=== PATIENT | female | born 1955 | race Caucasian/White ===

== ENCOUNTER 2024-05-16 20:49 | Emergency (ER) | payer MEDICARE, SELFPAY ==
[2024-05-16 20:51] VITALS: BP 180/90
[2024-05-16 21:08] VITALS: BMI 25.3
[2024-05-16 21:57] VITALS: BP 127/64
[2024-05-16 22:00] VITALS: BP 115/61
--- NOTE | 2024-05-16 22:44 | ED.GENMED ---
History of Present Illness
General
Chief Complaint: Head Injury
Source: patient
Exam Limitations: none
Time Seen by Provider: 05/16/24 22:01
Nursing documentation reviewed up to this point in time: agreed with
History of Present Illness
History of Present Illness:
68-year-old female with history of A-fib on Eliquis, CHF who presents to the emergency room for evaluation after head trauma. Patient says that she tripped on the leg of a chair while she was getting up and fell backwards and hit the back of her
head on the ground. She did not lose consciousness. She says she did not sustain any other injuries. She says that because she is on Eliquis she came to the emergency to be assessed. She says she did notice that she has tiny subconjunctival
hemorrhage in the left eye but denies any other issues since the fall. Denies any headache or neck pain. Denies any back pain. Denies any chest or abdominal pain. Denies any pain in her extremities. Has been ambulatory since the fall without
difficulty.
Review of Systems
Review of Systems
All Other Systems: ROS reviewed and negative except as documented in HPI and ROS
Constitutional: Denies fever or chills
Respiratory: Denies cough or trouble breathing
Cardiac: Denies chest pain, palpitations or syncope
ABD/GI: Denies abdominal pain, nausea or vomiting
: Denies flank pain
Musculoskeletal: Denies neck pain or back pain
Neurological: Denies dizzy or headache
Phy Exam
Physical Exam
Physical Exam:
General: Awake, alert, oriented x3; no acute distress
Head: Normocephalic, tiny left occipital scalp hematoma
Eyes: Tiny subconjunctival hemorrhage left eye; pupils equal round reactive to light bilaterally, extraocular moods are intact
Throat: Airway intact, handling secretions
Neck: Trachea midline, no cervical spine tenderness
Back: No tenderness in the thoracic or lumbar spine, no signs of trauma to the back or flank
Lungs: Breathing comfortably no distress, normal respiratory rate and work of breathing, normal pulse ox on room air
Heart: Regular rate; no chest wall tenderness
Abd: Soft, non distended, nontender
Neuro: No gross deficits
Extremities: Atraumatic
Scores
Heart Failure Risk
Heart Failure Risk Score: Not Applicable
Heart Score for Chest Pain Patients
STEMI patient?: Not applicable
Withdrawal Assessment of Alcohol
Withdrawal Assessment Completed?: Not applicable
Course
Orders/Labs/Results
Orders:
Orders
05/16/24 20:[address] [CT Head W/o Iv Contrast] Urgent
Comment:
Reason For Exam: FALL ON ELIQUIS, RIGHT EYE BLURRY, LEFT CONJUNCTIV
Vital Signs
Initial and Last Documented VS:
Initial Vital Signs
Temp Pulse Resp BP Pulse Ox
36.9 C 80 22 180/90 100
05/16/24 20:51 05/16/24 20:51 05/16/24 20:51 05/16/24 20:51 05/16/24 20:51
Last Documented Vital Signs
Temp Pulse Resp BP Pulse Ox
36.9 C 80 22 115/61 100
05/16/24 20:51 05/16/24 20:51 05/16/24 20:51 05/16/24 22:00 05/16/24 22:00
MDM/Problems Addressed
Differential Diagnosis Includes:
Traumatic head injury
MDM/Problems Addressed:
68-year-old female presents for evaluation after a mechanical trip and fall with occipital head trauma. She is on Eliquis. Minor subconjunctival hemorrhage in the left eye no other complaints. Hypertensive in triage normalized by my assessment,
rest of vitals normal. Physical exam as above. Check CT head. Reassess at the above.
CT head negative for any acute pathology. Stable for discharge. Spoke about return precautions all questions answered.
Chronic conditions affecting care:
A-fib on Eliquis�complicates head trauma
Acute Exacerbation and/or Progression of Chronic Illness:
Acutely hypertensive resolved without intervention continue to monitor but no additional antihypertensive treatment indicated at present
Acute Exacerbation and/or Progression of Chronic Illness: HTN
*Radiology
Radiology exam reviewed: radiology read reviewed
*Pulse Oximetry
Patient hypoxic: no
*Critical Care Note
Total Time (30-74mins, 75-104mins- exclusive of procedures): Not Applicable
Data Reviewed
Source: patient and spouse
ED Attending Note
-
Portions of this chart may have been created with voice recognition software.� Occasional wrong word or��sound alike� substitutions may have occurred due to the inherent limitations of voice recognition software.
Discharge Plan
Departure
Patient Disposition: Home (Routine Discharge)
Date of Disposition: 05/16/24
Time of Disposition: 22:05
Patient with high blood pressure during this ER visit?: Yes
Discharge Problem:
Traumatic hematoma of scalp
Instructions: Head Injury in Adults (DC)
Prescriptions:
No Action
amiodarone 200 mg Tablet
200 mg PO DAILY
acetaminophen [Tylenol Ex Str Arthritis Pain] 500 mg Tablet
1,000 mg PO Q6H PRN (Reason: pain)
metoprolol succinate 25 mg Tablet Extended Release 24 Hr
25 mg PO DAILY
Eliquis 5 mg Tablet
5 mg PO BID
Entresto 24-26 mg Tablet
1 tab PO BID
Activity Restrictions/Additional Instructions:
Thank you for visiting the Emergency Department at [facility].
1. Please schedule a follow up appointment as directed. Call first thing tomorrow morning to make an appointment.
2. If indicated, please take your medications as instructed and indicated on discharge paperwork.
3. If any of your symptoms do not improve, or persist, or become more severe within 6-12 hours, please return to the emergency department for further care.
4. Please return to the emergency department if you develop a headache, neck pain/stiffness, fever greater than 100.4F, chest pain, shortness of breath, persistent nausea, vomiting, slurred speech, difficulty walking, numbness/tingling, weakness,
signs of infection or any other symptoms that are worrisome to you.
Please call [phone] if you have any questions.
Interventions
Interventions:
*Risk Screen - Suicide Last Done: 05/16/24 20:51
*General Assessment Last Done: 05/16/24 21:11
*Neglect/Abuse Screening Last Done: 05/16/24 20:51
ED- Fall Risk Assessment Last Done: 05/16/24 22:12
*Nursing Disposition Last Done: 05/16/24 22:12
ED- Neurological Assessment Last Done: 05/16/24 21:08
ED-Skin Assessment Last Done: 05/16/24 21:08
Discharge Date and Time
Discharge Date/Time: 05/16/24 22:25
Print Language: CZECH
== END 2024-05-16 22:25 | disposition home or self-care (01) ==
LOC: EMR 20:49
PROVIDERS: EMERGENCY PHYSICIAN Emergency Medicine; FAMILY PHYSICIAN Family Medicine
DX: S00.03XA Contusion of scalp, initial encounter (principal); H11.32 Conjunctival hemorrhage, left eye; W07.XXXA Fall from chair, initial encounter; I48.91 Unspecified atrial fibrillation; I11.0 Hypertensive heart disease with heart failure; I50.9 Heart failure, unspecified; Z79.01 Long term (current) use of anticoagulants
CPT/HCPCS: 99284; 70450

== ENCOUNTER 2024-07-23 07:47 | Day surgery (SDC) | payer MEDICARE, SELFPAY ==
[2024-07-07 12:58] VITALS: BMI 26.4
[2024-07-07 13:29] LABS: % Eosinophils 0.7 % (0-6); % Lymphocytes 24.4 % (20.5-51.1); % Monocytes 10.2 % (1.7-9.3); % Neutrophils 63.5 % (42.2-75.2); Hematocrit 39.4 % (37.0-47.0); Hemoglobin 13.3 g/dL (12.0-16.0); Mean Corp Hgb Conc. 33.8 g/dL (33.0-37.0); Mean Corpuscular Hgb 31.4 pg (27.0-31.0); Mean Corpuscular Volume 93.1 fL (81.0-99.0); Mean Platelet Volume 9.2 fL (7.4-10.4); Platelet Count 203 10^3/uL (130-400); Red Blood Cell Count 4.23 10^6/uL (4.20-5.40); Red Cell Dist. Width 12.4 % (11.5-14.5); White Blood Cell Count 5.8 10^3/uL (4.8-10.8)
[2024-07-07 13:30] LABS: % Basophils 0.9 % (0-2); % Immature Granulocytes 0.3 % (0-0.5); Absolute Basophils 0.1 10^3/uL (0-0.2); Absolute Lymphocytes 1.4 10^3/uL (1.2-3.4); Absolute Monocytes 0.6 10^3/uL (0.1-0.6); Absolute Neutrophils 3.7 10^3/uL (1.4-6.5); Nucleated Red Blood Cells % 0 %
[2024-07-07 13:42] LABS: INR 1.18; PT 14.8 Sec (11.4-14.6)
[2024-07-07 13:47] LABS: ALT (SGPT) 18 U/L (0-35); AST (SGOT) 27 U/L (14-36); Albumin 4.5 g/dl (3.5-5.0); Alkaline Phosphatase 71 U/L (38-126); Blood Urea Nitrogen 13 mg/dl (7-17); Calcium 9.3 mg/dl (8.4-10.2); Carbon Dioxide 29 mmol/L (22-30); Chloride 101 mmol/L (98-107); Estimated Creatinine Clearance 58 ml/min; Glucose 94 mg/dl (70-99); Magnesium 2.1 mg/dl (1.6-2.3); Potassium 4.2 mmol/L (3.5-5.1); Sodium 139 mmol/L (135-145); Total Bilirubin 0.4 mg/dl (0.2-1.3); eGFR > 60.00
[2024-07-23] VITALS (21 sets, daily range): BP systolic 81–165; BP diastolic 45–83; BMI 24.7
[2024-07-23 11:30] LABS: ACT-LR - POC 285 Seconds (116-155)
[2024-07-23 11:50] LABS: ACT-LR - POC 303 Seconds (116-155)
--- NOTE | 2024-07-23 12:07 | ITS.CL.ABL ---
[employer] - Ablation
Ablation
Procedure Report:
ELECTROPHYSIOLOGY ABLATION STUDY
�
DATE:: July 23, 2024�����������������������������REFERRING: Dr. Celio Sellers
�
INDICATION: Paroxysmal supraventricular tachycardia in the form of atrial fibrillation.� History of nonischemic dilated cardiomyopathy
�
HISTORY: See H and P.��As above
�
ANTIARRHYTHMIC DRUG: Amiodarone
�
PRE-PROCEDURE ROSEY: No intracardiac thrombus
�
PRESENTING RHYTHM: Sinus bradycardia
�
'TIME-OUT':��called and confirmed.
�
SEDATION/ANESTHESIA:��provided via the anesthesia department using general anesthesia (LMA).
�
INTRAVENOUS/ARTERIAL ACCESS:
Right femoral venous - 8Fr
Left femoral venous - 8 Fr, 6 Fr
Vascade vascular closure was utilized for each of the venous access sites
Ultrasound guidance for bilateral femoral vein access was utilized by me to obtain access with demonstration of normal anatomy
CHADS-VASC Score:
�
HAS-Bled Score
�
PROCEDURE:
1.��A decapolar CS catheter was placed within the CS for mapping and pacing.��This was also used as the reference catheter for the 3-D map.
�
2. The intracardiac ultrasound catheter was positioned in the RA to identify the FO for targeting of transseptal puncture, assist��in identification of the pulmonary vein ostia, monitoring pre and post ablation pulmonary vein flow velocities,
monitoring for 'bubble' formation during RF application as a sign of thermal injury,��and to monitor for pericardial effusion during mapping and ablation procedure.���Left atrial size, LV ejection fraction, and pulmonary vein flows were monitored
pre and post ablation procedure. The other valves were inspected and found to be free of significant regurgitation or stenosis.
�
3.��Half of the calculated heparin bolus was administered prior to the first transeptal puncture.��Transseptal puncture was performed to diagnose RA and LA pressure so that safety of LA mapping and ablation could be further assessed, and to access
the left atrium and pulmonary veins for mapping and ablation.��This entailed advancing an 14 [place] Contour and needle dilator apparatus were advanced into the superior vena cava and withdrawing both (monitoring intracardiac ultrasound, fluoroscopy
and tip pressure) with the tip oriented toward the atrial septum.��The fossa ovalis was engaged (indicated by sudden displacement of the sheath tip as well as tenting of the fossa seen on intracardiac ultrasound).��Left atrial access required a pass
with the Brock[place]rough needle extended.��Left atrial catheter position was confirmed by pressure monitoring (RA mean pressure 8 mm Hg and LA mean presure 12 mm Hg), LA saturation (99%),��as well as fluoroscopy.��The sheath was advanced over the
dilator and positioned in the left atrium.��This procedure was repeated for the Agilis sheath.��The remainder of the calculated heparin bolus was administered and heparin was
infused to maintain ACT at 300 -350 seconds throughout the case. 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
�
4.��RA pacing was performed via the proximal decapolar poles and LA pacing was performed via the distal decapolr poles.
�
5. A quadrapolar catheter was first positioned at the His position for His Bundle recording which was tagged via the 3-D Navex sytem, and then passed to the RVA for RV pacing and recording.
�
6. The multipolar catheter and the PFA catheter were placed in each of the LIPV, LSPV, RSPV and the RIPV.��
�
7.��Next, a 3-D map was created using Navex.���A 3-D reconstructed CT image was compared to the 3-D Navex map to assist in anatomic interpretation, mapping and ablation.��The CT image and the NavX image were fused.
�
8. 88 lesions were given to the pulmonary veins and the left atrial posterior wall. Entrance and exit block in all 4 pulmonary veins and left atrial posterior wall was achieved. No pericardial fusion. Post procedure. Normal sinus node function.
0.2 mg of glycopyrrolate was given prior to ablation to void pause.
�
9. Normal sinus node and AV jennifer function were noted.
�
TOTAL FLOURO TIME: 17.8 minutes 83 mGy
�
TOTAL RF DURATION: 0 minutes
�
REVERSAL OF HEPARIN: 35 mg of protamine, slow IV administration
�
COMPLICATIONS:
None
Intracardiac US shows no pericardial effusion post ablation.
�
SUMMARY:��
Complex left atrial mapping and ablation.
Isolation of all 4 pulmonary veins and the left atrial posterior wall as above.
�
RECOMMENDATIONS:
1. Out of bed in 2 hours
2. Resume anticoagulation
3.��Discontinue amiodarone
4.��Consider same-day discharge
�
Copy to: Dr. Celio Sellers
�
--- NOTE | 2024-07-23 13:23 | PTCARENOTE ---
Dr Bella at pt bedside speaking to pt.
--- NOTE | 2024-07-23 14:55 | W.PN.UPDATE ---
Update Note
Progress Note Update
68 yo WF s/p PVI (same day). She denies cp, sob, jeferson clears, mildly lightheaded and hypotensive when oob initially, b/l groins c/d/i, soft, EKG SR. She will continue Eliquis dose at home tonight. She will continue metoprolol. Activity restrictions
reviewed. SHe will f/u Dr. Sellers in 2 mo. She is for d/c home after 3pm if voiding and bp improved.
SUMMARY:��
Complex left atrial mapping and ablation.
Isolation of all 4 pulmonary veins and the left atrial posterior wall as above.
--- NOTE | 2024-07-23 15:12 | PTCARENOTE ---
Pt's blood pressure has been 80's-90's/50's for the last 2 hours. Pt has been sitting in a chair at bedside for the last hour. Pt states when she first sat in chair she felt slightly dizzy/ lightheaded. Pt stated she wanted to stay sitting in the
chair. Pt drinking and eating crackers without difficulty. Quiana CURTISNP aware and in to evaluate pt. Pt ambulated to the bathroom and voided without difficulty. Pt states she feels 'so much better' and ready to go home. Dr Bella checked on pt.
Quiana Harvey NP made aware pt is feeling better and ready to go home. Quiana Harvey NP evaluated pt and states pt ok for discharge.
== END 2024-07-23 15:25 | disposition home or self-care (01) ==
LOC: CATH 07:47
PROVIDERS: ATTENDING PHYSICIAN Internal Medicine Cardiovascular Disease; FAMILY PHYSICIAN Family Medicine; OTHER PHYSICIAN Internal Medicine Cardiovascular Disease
DX: I48.19 Other persistent atrial fibrillation (principal); I47.19 Other supraventricular tachycardia; I11.0 Hypertensive heart disease with heart failure; I50.32 Chronic diastolic (congestive) heart failure; R00.2 Palpitations; R06.09 Other forms of dyspnea; Z79.01 Long term (current) use of anticoagulants
CPT/HCPCS: C1732; C1894; C1730; C1769; C1892; C1759; C1733; C1766; 36415; 75572; 80053; 83735; 85025; 85347; 85610; 86850; 86900; 86901; 93005; 93656; C1760; Q9967